=== PATIENT | male | born 1950 | race Caucasian/White ===

== ENCOUNTER 2019-03-20 08:07 | Emergency (ER) | payer MEDICARE, BC ==
[~2019-03-20] VITALS: Ht 185.4 cm; Wt 94.3 kg
[2019-03-20] MEDS ORDERED: COLCHICINE 0.6 MG TABLET ONE (08:36)
[2019-03-20] MEDS ORDERED: predniSONE 20 MG TABLET ONE (08:37)
[2019-03-20] MEDS ORDERED: predniSONE 20 MG TABLET PO ONE (08:45)
[2019-03-20] MEDS ORDERED: COLCHICINE 0.6 MG TABLET PO ONE (08:45)
[2019-03-22 12:15] VITALS: BP 152/94
== END 2019-03-20 12:21 | disposition home or self-care (01) ==
LOC: ER 08:07
DX: M10.9 Gout, unspecified (principal); F17.210 Nicotine dependence, cigarettes, uncomplicated; Z88.0 Allergy status to penicillin
CPT/HCPCS: 99283; J7512; A4663